=== PATIENT | male | born 1945 | race Two or more races ===

== ENCOUNTER 2021-11-13 17:47 | Outpatient (CLI) | payer OTHER | END 2021-11-13 17:51 | disposition home or self-care (01) | LOC: LAB 17:47 | PROVIDERS: ATTEND Urology | DX: R97.20 Elevated prostate specific antigen [PSA] (principal) ==

== ENCOUNTER 2021-12-05 07:43 | Outpatient (CLI) | payer OTHER | END 2021-12-05 11:02 | disposition home or self-care (01) | LOC: SONOGRAMA 07:43 | PROVIDERS: ATTEND Urology | DX: R97.20 Elevated prostate specific antigen [PSA] (principal) ==